=== PATIENT | female | born 1960 | race Hispanic/Latino ===

== ENCOUNTER 2017-05-04 09:53 | Emergency (ER) | payer SELFPAY ==
[2017-05-04] MEDS ORDERED: CYCLOBENZAPRINE HCL 10 MG TABLET ONE (10:27)
[2017-05-04] MEDS ORDERED: KETOROLAC TROMETHAMINE 60 MG/2 ML VIAL ONE (10:27)
== END 2017-05-04 11:04 | disposition home or self-care (01) ==
LOC: EDH 09:53
DX: S29.012A Strain of muscle and tendon of back wall of thorax, initial encounter (principal); X58.XXXA Exposure to other specified factors, initial encounter; Y93.89 Activity, other specified; Y92.89 Other specified places as the place of occurrence of the external cause; Y99.8 Other external cause status
CPT/HCPCS: 71101; 93005; 96372; 99284; J1885